=== PATIENT | male | born 1960 | race Caucasian/White ===

== ENCOUNTER 2016-12-26 11:04 | Inpatient (IN) | payer OTHER ==
[2016-12-26 12:42] VITALS: BMI 24.4
--- NOTE | 2016-12-26 14:42 | HP ---
CIWA Score - CIWA Score Nausea/Vomitin-No Nausea/No Vomiting Muscle Tremors: 4-Moderate,w/Arms Extend Anxiety: 3 Agitation: 4-Moderately Restless Paroxysmal Sweats: 3 Orientation: 0-Oriented Tacttile Disturbances: 0-None Auditory Disturbances: 0-None Visual Disturbances: 0-None Headache: 2-Mild CIWA-Ar Total Score: 16 Admission ROS BHS - HPI Chief Complaint: I am here to detox for the klonopin. Allergies/Adverse Reactions: Allergies Allergy/AdvReac Type Severity Reaction Status Date / Time No Known Allergies Allergy Verified 12/26/16 14:07 History of Present Illness: pt is a 56yr old male with a history of benzodiazapine (klonopin) dependence seeking detox for treatment. Exam Limitations: No Limitations - Ebola screening Have you traveled outside of the country in the last 21 days: No Have you had contact with anyone from an Ebola affected area: No Have you been sick,other than usual withdrawal symptoms: No Do you have a fever: No - Review of Systems Constitutional: Chills, Changes in sleep EENT: reports: No Symptoms Reported Respiratory: reports: No Symptoms reported Cardiac: reports: No Symptoms Reported GI: reports: No Symptoms Reported : reports: No Symptoms Reported Musculoskeletal: reports: Back Pain, Joint Pain Integumentary: reports: Flushing, Sweating Neuro: reports: Headache, Tingling, Tremors Endocrine: reports: Excessive Sweating, Flushing, Intolerance to Cold, Intolerance to Heat Hematology: reports: No Symptoms Reported Psychiatric: reports: No Sypmtoms Reported, Judgement Intact, Mood/Affect Appropiate, Orientated x3, Agitated, Anxious Other Systems: Reviewed and Negative Patient History - Patient Medical History Hx Anemia: No Hx Asthma: No Hx Chronic Obstructive Pulmonary Disease (COPD): No Hx Cancer: No Hx Cardiac Disorders: No Hx Congestive Heart Failure: No Hx Hypertension: No Hx Hypercholesterolemia: No Hx Pacemaker: No HX Cerebrovascular Accident: No Hx Seizures: No Hx Dementia: No Hx Diabetes: No Hx Gastrointestinal Disorders: No Hx Liver Disease: No Hx Genitourinary Disorders: No Hx Sexually Transmitted Disorders: No Hx Renal Disease (ESRD): No Hx Thyroid Disease: No Hx Human Immunodeficiency Virus (HIV): No (denies) Hx Hepatitis C: No (denies) Hx Depression: Yes Hx Suicide Attempt: No Hx Schizophrenia: No Other Medical History: insomnia/anxiety - Patient Surgical History Past Surgical History: No Hx Neurologic Surgery: No Hx Cataract Extraction: No Hx Cardiac Surgery: No Hx Lung Surgery: No Hx Breast Surgery: No Hx Breast Biopsy: No Hx Abdominal Surgery: No Hx Appendectomy: No Hx Cholecystectomy: No Hx Genitourinary Surgery: No Hx Section: No Hx Orthopedic Surgery: No Anesthesia Reaction: No - PPD History Previous Implant?: Yes Documented Results: Negative w/o proof Implanted On Prior R Admission?: No PPD to be Administered?: Yes - Reproductive History Patient is a Female of Child Bearing Age (11 -55 yrs old): No - Smoking Cessation Smoking history: Never smoked Have you smoked in the past 12 months: No Hx Chewing Tobacco Use: No Initiated information on smoking cessation: No - Substance & Tx. History Hx Alcohol Use: Yes Hx Substance Use: Yes Substance Use Type: Alcohol, Tranquilizers Hx Substance Use Treatment: Yes - Substances Abused Klonopin Route: Oral Frequency: Daily Amount used: 4 mg. Age of first use: 56 Date of Last Use: 12/25/16 Alcohol-beer Route: Oral Frequency: 3-6 times per week Amount used: 3-4 (12 oz.) Age of first use: 23 Date of Last Use: 12/24/16 Family Disease History - Family Disease History Family History: Denies Admission Physical Exam S - Vital Signs Vital Signs: Vital Signs - 24 hr 12/26/16 12:39 Temperature 97.0 F L Pulse Rate 83 Respiratory 18 Rate Blood Pressure 141/99 - Physical General Appearance: Yes: Appropriately Dressed, Moderate Distress, Thin, Tremorous, Irritable, Sweating, Anxious HEENTM: Yes: Hearing grossly Normal Respiratory: Yes: Lungs Clear, Normal Breath Sounds, No Respiratory Distress Neck: Yes: Within Normal Limits Breast: Yes: Within Normal Limits Cardiology: Yes: Regular Rhythm, Regular Rate, S1, S2 Abdominal: Yes: Normal Bowel Sounds, Non Tender, Soft Genitourinary: Yes: Within Normal Limits Back: Yes: Normal Inspection Musculoskeletal: Yes: full range of Motion Extremities: Yes: Normal Capillary Refill, Normal Inspection, Tremors Neurological: Yes: Fully Oriented, Alert, Normal Response Integumentary: Yes: Normal Color, Diaphoresis Lymphatic: Yes: Within Normal Limits - Diagnostic (1) Sedative, hypnotic or anxiolytic dependence with withdrawal, uncomplicated Current Visit: Yes Status: Chronic (2) Alcohol dependence with uncomplicated withdrawal Current Visit: Yes Status: Chronic (3) Insomnia Current Visit: Yes Status: Chronic Qualifiers: Insomnia type: unspecified Qualified Code(s): G47.00 - Insomnia, unspecified Cleared for Admission BH - Detox or Rehab [facility] Level of Care: Medically Managed Detox Regimen/Protocol: Valium S Breath Alcohol Content Breath Alcohol Content: 0 Urine Drug Screen - Results Drug Screen Negative: No Urine Drug Screen Results: BZO-Benzodiazepines, TCA-Tricyclic Antidepress
[2016-12-26] MEDS ORDERED: ACETAMINOPHEN 325 MG TABLET (FP) PO PRN (14:57)
[2016-12-26] MEDS ORDERED: MAGNESIUM CITRATE 300 ML BOTTLE PO PRN (14:57)
[2016-12-26] MEDS ORDERED: MENTHOL/PHENOL 1 EACH UD MM PRN (14:57)
[2016-12-26] MEDS ORDERED: P-EPHED 60MG/TRIPROLIDI 2.5MG TABLET PO PRN (14:57)
[2016-12-26] MEDS ORDERED: diphenhydrAMINE HCL 50 MG CAPSULE PO PRN (14:57)
[2016-12-26] MEDS ORDERED: MAGNESIUM HYDROX 2400MG/30ML ORAL SUSPENSION 30 ML CUP PO PRN (14:57)
[2016-12-26] MEDS ORDERED: guaiFENesin/D-METHORPHAN HB 10 ML UNIT-DOSE CUPS PO PRN (14:57)
[2016-12-26] MEDS ORDERED: LOPERAMIDE HCL 2 MG CAPSULE PO PRN (14:57)
[2016-12-26] MEDS ORDERED: MAG HYDROX/AL HYDROX/SIMETH 30 ML UNIT-DOSE CUP PO PRN (14:57)
[2016-12-26] MEDS ORDERED: diazePAM 5 MG TABLET PO ONE (15:30)
[2016-12-26] MEDS: IBUPROFEN 400 MG TABLET (FP) PO PRN (16:35)
--- NOTE | 2016-12-26 17:05 | CONSULT ---
[facility] Psychiatric Consult - Data Date of interview: 12/26/16 Admission source: [facility] Identifying data: First admission to [facility] for this 56 y/o male seeking detox treatment for alcohol and benzodiazepine dependence.Patient is ( of lung cancer in 2013) without children,domiciled, unemployed and supported on Public Assistance. Substance Abuse History: - Smoking Cessation. Smoking history: Never smoked. Have you smoked in the past 12 months: No. Hx Chewing Tobacco Use: No. Initiated information on smoking cessation: No. - Substance & Tx. History. Hx Alcohol Use: Yes. Hx Substance Use: Yes. Substance Use Type: Alcohol, Tranquilizers. Hx Substance Use Treatment: Yes. - Substances Abused. Klonopin. Route: Oral. Frequency: Daily. Amount used: 4 mg. Age of first use : 56. Date of Last Use: 12/25/16. Alcohol-beer. Route: Oral. Frequency: 3 -6 times per week. Amount used: 3-4 (12 oz.). Age of first use: 23. Date of Last Use: 12/24/16. Confirmed by patient. Medical History: Patient endorses good general health. Psychiatric History: Onset of emotional disturbances : age 21. Diagnosed with Anxiety Disorder.History of multiple psychiatric hospitalizations ([facility]).Mr Erickson gets his outpatient psychiatric services at the [facility] health clinic in [place], [place].He reports maintenance on seroquel 800 mg/hs and klonopin.Last taken on 12/25/16 as per self-report.No history of suicide attempts. Physical/Sexual Abuse/Trauma History: Patient denies hoistory of abuse. Additional Comment: Urine Drug Screen Results: BZO-Benzodiazepines, TCA- Tricyclic Antidepressant.Noted. Mental Status Exam - Mental Status Exam Alert and Oriented to: Place, Person Cognitive Function: Good Patient Appearance: Well Groomed Mood: Sad, Withdrawn, Anxious, Apprehensive Affect: Mood Congruent, Constricted Patient Behavior: Fatigued, Appropriate, Cooperative Speech Pattern: Clear (croatian-speaking) Voice Loudness: Normal Thought Process: Goal Oriented Thought Disorder: Not Present Hallucinations: Denies Suicidal Ideation: Denies Homicidal Ideation: Denies Insight/Judgement: Poor Sleep: Poorly, Difficulty falling asleep Appetite: Good Muscle strength/Tone: Normal Gait/Station: Normal Psychiatric Findings - Problem List ([place] 1, 2,3) (1) Alcohol dependence with uncomplicated withdrawal Current Visit: Yes Status: Acute (2) Sedative, hypnotic or anxiolytic dependence with withdrawal, uncomplicated Current Visit: Yes Status: Acute (3) Substance induced mood disorder Current Visit: Yes Status: Acute (4) Mood disorder Current Visit: Yes Status: Chronic (5) Insomnia Current Visit: Yes Status: Chronic Qualifiers: Insomnia type: unspecified Qualified Code(s): G47.00 - Insomnia, unspecified - Initial Treatment Plan Initial Treatment Plan: Psychoeducation.Detoxification in progress.Medication : seroquel 200 mg po bid (intentionally reduced in view of potential for oversedation).Side effects/benefits discussed with the patient.Titration will follow if good tolerability/clinical necessity.Patient is in agreement with this plan of care.Dose was verified (with patient's verbal authorization) via contact with [facility] @ [phone] : most recent filled script for seroquel 400 mg bid was picked up on 12/18/16 at [address] [facility] [address].Observation.NO scripts needed at discharge.
[2016-12-26 18:03] LABS: URINE APPEARANCE CLEAR; URINE BILIRUBIN NEGATIVE (NEGATIVE); URINE BLOOD NEGATIVE (NEGATIVE); URINE COLOR STRAW; URINE GLUCOSE (UA) NEGATIVE (NEGATIVE); URINE KETONE NEGATIVE (NEGATIVE); URINE LEUK ESTERASE NEGATIVE (NEGATIVE); URINE NITRITE NEGATIVE (NEGATIVE); URINE PROTEIN NEGATIVE (NEGATIVE); URINE UROBILINOGEN NEGATIVE E.U./dl (0.2-1.0)
[2016-12-26] MEDS: diazePAM 5 MG TABLET PO SCH (22:52)
[2016-12-26] MEDS: QUEtiapine FUMARATE 200 MG TABLET PO SCH (22:52)
[2016-12-26] MEDS: THIAMINE HCL 100 MG TABLET (FP) PO SCH (22:52)
[2016-12-27] MEDS: diazePAM 5 MG TABLET PO SCH ×3 (05:33→22:26)
[2016-12-27] MEDS: diazePAM 5 MG TABLET PO PRN ×3 (06:37→17:07)
[2016-12-27 09:58] LABS: MCH 29.3 pg (25.7-33.7); MCHC 33.3 g/dl (32.0-35.9); MEAN CELL VOLUME 88.1 fl (80-96); MEAN PLT VOLUME 8.8 fl (7.5-11.1); PLATELET COUNT 231 K/MM3 (134-434); RDW 13.6 % (11.9-15.9); WHITE BLOOD COUNT 4.9 K/mm3 (4.0-10.0)
[2016-12-27] MEDS: QUEtiapine FUMARATE 200 MG TABLET PO SCH ×2 (10:29→22:27)
[2016-12-27] MEDS: PRENATAL VITAMINS W/ FOLIC ACID TABLET (FP) PO SCH (10:29)
[2016-12-27 10:32] LABS: ALBUMIN 4.5 g/dl (3.4-5.0); ALK PHOS 120 U/L (45-117); ANION GAP 6 (8-16); BILIRUBIN,TOTAL 0.5 mg/dL (0.2-1.0); CALCIUM 9.4 mg/dL (8.5-10.1); CO2 32 mmol/L (21-32); COCKROFT - GAULT 85.56; CREATININE 1.1 mg/dL (0.7-1.3); GLUCOSE,RANDOM 86 mg/dL (74-106); SGOT/AST 46 U/L (15-37); SGPT/ALT 35 U/L (12-78); TOT PROT 7.5 g/dl (6.4-8.2)
[2016-12-27] MEDS ORDERED: cloNIDine HCL 0.1 MG TABLET PO ONE (12:01)
--- NOTE | 2016-12-27 12:01 | PN ---
S CIWA - CIWA Score Nausea/Vomitin Muscle Tremors: 3 Anxiety: 4-Mod. Anxious/Guarded Agitation: 2 Paroxysmal Sweats: 2 Orientation: 0-Oriented Tacttile Disturbances: 1-Very Mild Itch/Numbness Auditory Disturbances: 0-None Visual Disturbances: 3-Moderate Sensitivity Headache: 2-Mild CIWA-Ar Total Score: 19 BHS Progress Note (SOAP) Subjective: Interrupted Sleep, Tremors, Stomach Cramping, Anxious, H/A, Diarrhea. Objective: PT. A & O X 3, OBSERVED AMBULATING ON UNIT. PT. DENIES HISTORY OF HTN. PT. DENIES CHEST PAIN. 12/27/16 11:59 Vital Signs Temperature 96.0 F L 12/27/16 09:10 Pulse Rate 96 H 12/27/16 09:10 Respiratory Rate 18 12/27/16 09:10 Blood Pressure 147/102 12/27/16 09:10 O2 Sat by Pulse Oximetry (%) Laboratory Tests 12/26/16 12/27/16 12/27/16 17:01 06:00 06:00 WBC 4.9 RBC 5.57 Hgb 16.3 Hct 49.1 H MCV 88.1 MCHC 33.3 RDW 13.6 Plt Count 231 MPV 8.8 Sodium 142 Potassium 4.3 Chloride 104 Carbon Dioxide 32 Anion Gap 6 L BUN 11 Creatinine 1.1 Creat Clearance w eGFR > 60 Random Glucose 86 Calcium 9.4 Total Bilirubin 0.5 AST 46 H ALT 35 Alkaline Phosphatase 120 H Total Protein 7.5 Albumin 4.5 Urine Color Straw Urine Appearance Clear Urine pH 7.0 Ur Specific [place] 1.010 Urine Protein Negative Urine Glucose (UA) Negative Urine Ketones Negative Urine Blood Negative Urine Nitrite Negative Urine Bilirubin Negative Urine Urobilinogen Negative Ur Leukocyte Esterase Negative LABS NOTED. 12/27/16 12:01 Assessment: 12/27/16 12:01 WITHDRAWAL SYMPTOMS. Plan: CONTINUE DETOX. CONTINUE TO MONITOR BP. CLONIDINE, 0.1 MG PO X 1 FOR ELEVATED BP AND FOR WITHDRAWAL SYMPTOMS. ADVISED PT. TO FOLLOW-UP WITH [facility] OR CALENDAR CLERK AFTER DISCHARGE FROM DETOX FOR GENERAL MEDICAL ASSESSMENT AND FOR ABNORMAL ADMISSION LIVER ENZYME VALUES.
--- NOTE | 2016-12-27 13:13 | EKG ---
Test Reason : Blood Pressure : / mmHG Vent. Rate : 070 BPM Atrial Rate : 070 BPM P-R Int : 148 ms QRS Dur : 092 ms QT Int : 408 ms P-R-T Axes : 058 046 053 degrees QTc Int : 440 ms NORMAL SINUS RHYTHM NORMAL ECG NO PREVIOUS ECGS AVAILABLE Confirmed by ZOLTAN MELVIN MD ([id number]) on 12/27/2016 1:12:58 PM Referred By: Confirmed By:ZOLTAN MELVIN MD
[2016-12-27] MEDS: THIAMINE HCL 100 MG TABLET (FP) PO SCH (22:26)
[2016-12-28] MEDS: diazePAM 5 MG TABLET PO PRN ×4 (05:03→18:45)
[2016-12-28] MEDS: hydrOXYzine PAMOATE 50 MG CAPSULE (FP) PO PRN (07:27)
[2016-12-28] MEDS: IBUPROFEN 400 MG TABLET (FP) PO PRN (07:27)
[2016-12-28] MEDS: QUEtiapine FUMARATE 200 MG TABLET PO SCH ×2 (09:07→22:21)
[2016-12-28] MEDS: PRENATAL VITAMINS W/ FOLIC ACID TABLET (FP) PO SCH (09:07)
--- NOTE | 2016-12-28 10:11 | PN ---
S CIWA - CIWA Score Nausea/Vomitin-No Nausea/No Vomiting Muscle Tremors: 4-Moderate,w/Arms Extend Anxiety: 3 Agitation: 3 Paroxysmal Sweats: 3 Orientation: 0-Oriented Tacttile Disturbances: 0-None Auditory Disturbances: 0-None Visual Disturbances: 0-None Headache: 0-None Present CIWA-Ar Total Score: 13 BHS Progress Note (SOAP) Subjective: Anxiety,sweating,interrupted sleep,restless Objective: 12/28/16 10:10 Vital Signs - 8 hr 12/28/16 12/28/16 12/28/16 03:30 06:15 07:28 Temperature 97.8 F Pulse Rate 88 86 Respiratory 18 18 Rate Blood Pressure 168/108 134/100 12/28/16 09:20 Temperature 97.5 F L Pulse Rate 103 H Respiratory 20 Rate Blood Pressure 153/103 Laboratory Tests 12/26/16 12/27/16 12/27/16 17:01 06:00 06:00 WBC 4.9 RBC 5.57 Hgb 16.3 Hct 49.1 H MCV 88.1 MCHC 33.3 RDW 13.6 Plt Count 231 MPV 8.8 Sodium 142 Potassium 4.3 Chloride 104 Carbon Dioxide 32 Anion Gap 6 L BUN 11 Creatinine 1.1 Creat Clearance w eGFR > 60 Random Glucose 86 Calcium 9.4 Total Bilirubin 0.5 AST 46 H ALT 35 Alkaline Phosphatase 120 H Total Protein 7.5 Albumin 4.5 Urine Color Straw Urine Appearance Clear Urine pH 7.0 Ur Specific [place] 1.010 Urine Protein Negative Urine Glucose (UA) Negative Urine Ketones Negative Urine Blood Negative Urine Nitrite Negative Urine Bilirubin Negative Urine Urobilinogen Negative Ur Leukocyte Esterase Negative RPR Titer 12/27/16 06:00 WBC RBC Hgb Hct MCV MCHC RDW Plt Count MPV Sodium Potassium Chloride Carbon Dioxide Anion Gap BUN Creatinine Creat Clearance w eGFR Random Glucose Calcium Total Bilirubin AST ALT Alkaline Phosphatase Total Protein Albumin Urine Color Urine Appearance Urine pH Ur Specific [place] Urine Protein Urine Glucose (UA) Urine Ketones Urine Blood Urine Nitrite Urine Bilirubin Urine Urobilinogen Ur Leukocyte Esterase RPR Titer Nonreactive labs noted Assessment: 12/28/16 10:11 Withdrawal sx. Plan: Continue detox
[2016-12-28] MEDS: amLODIPine BESYLATE 5 MG TABLET (FP) PO SCH ×2 (10:29→22:21)
[2016-12-28] MEDS: diazePAM 5 MG TABLET PO SCH ×2 (10:57→22:21)
[2016-12-28] MEDS: THIAMINE HCL 100 MG TABLET (FP) PO SCH (22:21)
[2016-12-29] MEDS: diazePAM 5 MG TABLET PO PRN ×3 (04:31→13:45)
[2016-12-29] MEDS: diazePAM 5 MG TABLET PO SCH ×2 (10:23→22:19)
[2016-12-29] MEDS: QUEtiapine FUMARATE 200 MG TABLET PO SCH ×2 (10:23→22:19)
[2016-12-29] MEDS: PRENATAL VITAMINS W/ FOLIC ACID TABLET (FP) PO SCH (10:23)
[2016-12-29] MEDS: amLODIPine BESYLATE 5 MG TABLET (FP) PO SCH ×2 (10:23→22:19)
--- NOTE | 2016-12-29 11:44 | PN ---
S CIWA - CIWA Score Nausea/Vomitin Muscle Tremors: 2 Anxiety: 2 Agitation: 2 Paroxysmal Sweats: 2 Orientation: 0-Oriented Tacttile Disturbances: 1-Very Mild Itch/Numbness Auditory Disturbances: 0-None Visual Disturbances: 0-None Headache: 3-Moderate CIWA-Ar Total Score: 14 S Progress Note (SOAP) Subjective: sweats, headache, right rib pain,anxiety Objective: 12/29/16 11:43 Vital Signs - 8 hr 12/29/16 12/29/16 06:22 10:20 Temperature 96.9 F L 98.1 F Pulse Rate 91 H 93 H Respiratory 18 20 Rate Blood Pressure 150/93 140/97 Laboratory Last Values WBC 4.9 K/mm3 (4.0-10.0) 12/27/16 06:00 RBC 5.57 M/mm3 (4.00-5.60) 12/27/16 06:00 Hgb 16.3 GM/dL (11.7-16.9) 12/27/16 06:00 Hct 49.1 % (35.4-49) H 12/27/16 06:00 MCV 88.1 fl (80-96) 12/27/16 06:00 MCHC 33.3 g/dl (32.0-35.9) 12/27/16 06:00 RDW 13.6 % (11.9-15.9) 12/27/16 06:00 Plt Count 231 K/MM3 (134-434) 12/27/16 06:00 MPV 8.8 fl (7.5-11.1) 12/27/16 06:00 Sodium 142 mmol/L (136-145) 12/27/16 06:00 Potassium 4.3 mmol/L (3.5-5.1) 12/27/16 06:00 Chloride 104 mmol/L (98-107) 12/27/16 06:00 Carbon Dioxide 32 mmol/L (21-32) 12/27/16 06:00 Anion Gap 6 (8-16) L 12/27/16 06:00 BUN 11 mg/dL (7-18) 12/27/16 06:00 Creatinine 1.1 mg/dL (0.7-1.3) 12/27/16 06:00 Creat Clearance w eGFR > 60 (>60) 12/27/16 06:00 Random Glucose 86 mg/dL (74-106) 12/27/16 06:00 Calcium 9.4 mg/dL (8.5-10.1) 12/27/16 06:00 Total Bilirubin 0.5 mg/dL (0.2-1.0) 12/27/16 06:00 AST 46 U/L (15-37) H 12/27/16 06:00 ALT 35 U/L (12-78) 12/27/16 06:00 Alkaline Phosphatase 120 U/L (45-117) H 12/27/16 06:00 Total Protein 7.5 g/dl (6.4-8.2) 12/27/16 06:00 Albumin 4.5 g/dl (3.4-5.0) 12/27/16 06:00 Urine Color Straw 12/26/16 17:01 Urine Appearance Clear 12/26/16 17:01 Urine pH 7.0 (5.0-8.0) 12/26/16 17:01 Ur Specific [place] 1.010 (1.005-1.025) 12/26/16 17:01 Urine Protein Negative (NEGATIVE) 12/26/16 17:01 Urine Glucose (UA) Negative (NEGATIVE) 12/26/16 17:01 Urine Ketones Negative (NEGATIVE) 12/26/16 17:01 Urine Blood Negative (NEGATIVE) 12/26/16 17:01 Urine Nitrite Negative (NEGATIVE) 12/26/16 17:01 Urine Bilirubin Negative (NEGATIVE) 12/26/16 17:01 Urine Urobilinogen Negative E.U./dl (0.2-1.0) 12/26/16 17:01 Ur Leukocyte Esterase Negative (NEGATIVE) 12/26/16 17:01 RPR Titer Nonreactive (NONREACTIVE) 12/27/16 06:00 labs noted Assessment: 12/29/16 11:43 withdrawal sx Plan: continue detox
[2016-12-29] MEDS: hydrOXYzine PAMOATE 50 MG CAPSULE (FP) PO PRN ×2 (17:28→22:18)
[2016-12-29] MEDS: THIAMINE HCL 100 MG TABLET (FP) PO SCH (22:18)
[2016-12-30] MEDS: IBUPROFEN 400 MG TABLET (FP) PO PRN (05:32)
[2016-12-30] MEDS ORDERED: diazePAM 5 MG TABLET PO SCH (10:00)
[2016-12-30 10:19] VITALS: BP 134/93; PULSE 95; TEMP 98.3
[2016-12-30] MEDS: QUEtiapine FUMARATE 200 MG TABLET PO SCH (10:25)
[2016-12-30] MEDS: PRENATAL VITAMINS W/ FOLIC ACID TABLET (FP) PO SCH (10:25)
[2016-12-30] MEDS: amLODIPine BESYLATE 5 MG TABLET (FP) PO SCH (10:25)
--- NOTE | 2016-12-30 13:22 | DS ---
[facility] Detox Discharge Summary Admission Date: 12/26/16 Discharge Date: 12/30/16 - History Present History: Alcohol Dependence, Sedative Dependence Pertinent Past History: HTN - Physical Exam Results Vital Signs: Vital Signs Temperature 98.3 F 12/30/16 10:19 Pulse Rate 95 H 12/30/16 10:19 Respiratory Rate 20 12/30/16 10:19 Blood Pressure 134/93 12/30/16 10:19 O2 Sat by Pulse Oximetry (%) Pertinent Admission Physical Exam Findings: Withdrawal symptoms Laboratory Tests 12/26/16 12/27/16 12/27/16 17:01 06:00 06:00 WBC 4.9 RBC 5.57 Hgb 16.3 Hct 49.1 H MCV 88.1 MCHC 33.3 RDW 13.6 Plt Count 231 MPV 8.8 Sodium 142 Potassium 4.3 Chloride 104 Carbon Dioxide 32 Anion Gap 6 L BUN 11 Creatinine 1.1 Creat Clearance w eGFR > 60 Random Glucose 86 Calcium 9.4 Total Bilirubin 0.5 AST 46 H ALT 35 Alkaline Phosphatase 120 H Total Protein 7.5 Albumin 4.5 Urine Color Straw Urine Appearance Clear Urine pH 7.0 Ur Specific [place] 1.010 Urine Protein Negative Urine Glucose (UA) Negative Urine Ketones Negative Urine Blood Negative Urine Nitrite Negative Urine Bilirubin Negative Urine Urobilinogen Negative Ur Leukocyte Esterase Negative RPR Titer 12/27/16 06:00 WBC RBC Hgb Hct MCV MCHC RDW Plt Count MPV Sodium Potassium Chloride Carbon Dioxide Anion Gap BUN Creatinine Creat Clearance w eGFR Random Glucose Calcium Total Bilirubin AST ALT Alkaline Phosphatase Total Protein Albumin Urine Color Urine Appearance Urine pH Ur Specific [place] Urine Protein Urine Glucose (UA) Urine Ketones Urine Blood Urine Nitrite Urine Bilirubin Urine Urobilinogen Ur Leukocyte Esterase RPR Titer Nonreactive Labs noted - Treatment Hospital Course: Detox Protocol Followed, Detoxed Safely, Responded well, Discharged Condition Good, Rehab Referral Accepted - Medication Discharge Medications: Ambulatory Orders Clonazepam [Klonopin -] 2 mg PO BID PRN 12/26/16 Quetiapine Fumarate [Seroquel -] 400 mg PO BID 12/26/16 - Diagnosis (1) Alcohol dependence with uncomplicated withdrawal Current Visit: Yes Status: Acute (2) Sedative, hypnotic or anxiolytic dependence with withdrawal, uncomplicated Current Visit: Yes Status: Acute (3) Mood disorder Current Visit: Yes Status: Chronic (4) HTN (hypertension), benign Current Visit: Yes Status: Acute - AMA Did Patient Leave Against Medical Advice: No
== END 2016-12-30 13:45 | disposition other institution (70) | DRG 775 ==
LOC: YASAS 11:04 → Y3N 15:07
PROVIDERS: ADMIT Internal Medicine; ATTEND Internal Medicine
PROC: HZ2ZZZZ Detoxification Services for Substance Abuse Treatment (ICD-10-PCS; principal; 2016-12-26)
DX: F13.230 Sedative, hypnotic or anxiolytic dependence with withdrawal, uncomplicated (principal); F10.230 Alcohol dependence with withdrawal, uncomplicated; F39 Unspecified mood [affective] disorder; F19.24 Other psychoactive substance dependence with psychoactive substance-induced mood disorder; I10 Essential (primary) hypertension; G47.00 Insomnia, unspecified
CPT/HCPCS: 36415; 80053; 81003; 85027; 86593; 93005; 93010

== ENCOUNTER 2016-12-30 13:45 | Inpatient (IN) | payer OTHER ==
[2016-12-30] MEDS ORDERED: ACETAMINOPHEN 325 MG TABLET (FP) PO PRN (16:28)
[2016-12-30] MEDS ORDERED: LOPERAMIDE HCL 2 MG CAPSULE PO PRN (16:28)
[2016-12-30] MEDS ORDERED: P-EPHED 60MG/TRIPROLIDI 2.5MG TABLET PO PRN (16:28)
[2016-12-30] MEDS ORDERED: MAGNESIUM CITRATE 300 ML BOTTLE PO PRN (16:28)
[2016-12-30] MEDS ORDERED: MAGNESIUM HYDROX 2400MG/30ML ORAL SUSPENSION 30 ML CUP PO PRN (16:28)
[2016-12-30] MEDS ORDERED: MENTHOL/PHENOL 1 EACH UD MM PRN (16:28)
[2016-12-30] MEDS ORDERED: guaiFENesin/D-METHORPHAN HB 10 ML UNIT-DOSE CUPS PO PRN (16:28)
[2016-12-30] MEDS ORDERED: MAG HYDROX/AL HYDROX/SIMETH 30 ML UNIT-DOSE CUP PO PRN (16:28)
[2016-12-30] MEDS ORDERED: diphenhydrAMINE HCL 50 MG CAPSULE PO PRN (16:28)
--- NOTE | 2016-12-30 16:30 | HP ---
[facility] Rehab Assess/Revision - Admission History Admitted to Rehab from: [facility] Date of Admission to Rehab: 12/30/16 - Vital signs Vital Signs: Vital Signs Period Temp Pulse Resp BP Sys/Sanders Pulse Ox Last 24 Hr 97.3 F 102 18 114/82 - Findings Detox History & Physical reviewed: Yes Concur with findings: Yes
[2016-12-30] MEDS: QUEtiapine FUMARATE 100 MG TABLET (FP) PO SCH (21:32)
[2016-12-30] MEDS: THIAMINE HCL 100 MG TABLET (FP) PO SCH (21:32)
[2016-12-31] MEDS: IBUPROFEN 400 MG TABLET (FP) PO PRN (06:57)
[2016-12-31] MEDS: diphenhydrAMINE HCL 25 MG CAPSULE (FP) PO PRN ×2 (07:57→18:03)
[2016-12-31] MEDS: PRENATAL VITAMINS W/ FOLIC ACID TABLET (FP) PO SCH (10:22)
[2016-12-31] MEDS: HYDROCORTISONE 1% TOPICAL CREAM 30 GM TUBE TP SCH ×2 (18:04→23:09)
[2016-12-31] MEDS: THIAMINE HCL 100 MG TABLET (FP) PO SCH (21:45)
[2016-12-31] MEDS: QUEtiapine FUMARATE 100 MG TABLET (FP) PO SCH (21:45)
[2017-01-01] MEDS: diphenhydrAMINE HCL 25 MG CAPSULE (FP) PO PRN (08:28)
[2017-01-01] MEDS: HYDROCORTISONE 1% TOPICAL CREAM 30 GM TUBE TP SCH ×4 (10:20→21:34)
[2017-01-01] MEDS: PRENATAL VITAMINS W/ FOLIC ACID TABLET (FP) PO SCH (10:20)
--- NOTE | 2017-01-01 12:34 | HP ---
Psychiatrist Admission - Data Date of interview: 01/01/17 Admission source: [facility] Identifying data: This is the first [facility] inpatient rehabilitation admission for this 56 year old male who is without children, domiciled,unemployed and supported on Public Assistance. Medical History: Patient reports a good physical health. Psychiatric History: Patient reports first psychiatric contact was at age of 21 to address anxiety, reports he lost his from lung cancer in 2013 and he started taking more klonopin, he reports several psychiatric hospitalizations including [facility], [facility], [facility], he reports he under the care of [facility] in [place] and was on Seroquel 800 mg hs and Klonopin. Seen by while at [facility] and started 400 mg po hs. Past treatment with Buspar, Gabapentin. Physical/Sexual Abuse/Trauma History: Patient denies history of abuse Vital Signs: Vital Signs - 24 hr 01/01/17 01/01/17 01/01/17 00:30 03:30 07:00 Temperature 98.7 F Pulse Rate 98 H Respiratory 16 16 18 Rate Blood Pressure 142/92 Allergies/Adverse Reactions: Allergies Allergy/AdvReac Type Severity Reaction Status Date / Time No Known Allergies Allergy Verified 12/26/16 14:07 Date of last physical exam: 12/26/16 Concur with the findings of this exam: Yes - Substance Abuse/Tx History Hx Alcohol Use: Yes Hx Substance Use: Yes Substance Use Type: Alcohol (beer 12 oz, 3-4 times a week), Tranquilizers (4 mg of klonopin daily) Hx Substance Use Treatment: Yes - Admission Criteria Previous failed treatment: Yes Poor recovery environment: Yes Comorbidities: Yes Lacks judgement: Yes Mental Status Exam - Mental Status Exam Alert and Oriented to: Time, Place, Person Cognitive Function: Grossly Intact Patient Appearance: Well Groomed Mood: Nervous, Anxious Affect: Mood Congruent Patient Behavior: Appropriate, Cooperative Speech Pattern: Clear, Appropriate Voice Loudness: Normal Thought Process: Goal Oriented Thought Disorder: Not Present Hallucinations: Denies Suicidal Ideation: Denies Homicidal Ideation: Denies Insight/Judgement: Fair Sleep: Fair Appetite: Fair Muscle strength/Tone: Normal Gait/Station: Normal Psychiatric Findings - Problem List ([place] 1, 2,3) (1) Mood disorder Current Visit: No Status: Chronic (2) Alcohol dependence Current Visit: Yes Status: Acute (3) Sedative hypnotic or anxiolytic dependence Current Visit: Yes Status: Acute (4) SOFIA (generalized anxiety disorder) Current Visit: Yes Status: Acute - Initial Treatment Plan Initial Treatment Plan: Will increase Seroquel 600 mg po hs, will add Gabapentin 100 mg po tid. Monitor progress as needed.
[2017-01-01] MEDS: GABAPENTIN 100 MG CAPSULE (FP) PO SCH ×2 (14:18→21:34)
[2017-01-01] MEDS: THIAMINE HCL 100 MG TABLET (FP) PO SCH (21:34)
[2017-01-01] MEDS: QUEtiapine FUMARATE 300 MG TABLET PO SCH (21:34)
[2017-01-02] MEDS: GABAPENTIN 100 MG CAPSULE (FP) PO SCH ×3 (06:19→21:31)
[2017-01-02] MEDS: HYDROCORTISONE 1% TOPICAL CREAM 30 GM TUBE TP SCH ×4 (10:11→21:31)
[2017-01-02] MEDS: QUEtiapine FUMARATE 300 MG TABLET PO SCH (21:31)
[2017-01-02] MEDS: THIAMINE HCL 100 MG TABLET (FP) PO SCH (21:32)
[2017-01-03] MEDS: GABAPENTIN 100 MG CAPSULE (FP) PO SCH ×3 (06:30→21:33)
[2017-01-03] MEDS: HYDROCORTISONE 1% TOPICAL CREAM 30 GM TUBE TP SCH ×4 (10:03→21:33)
[2017-01-03] MEDS: THIAMINE HCL 100 MG TABLET (FP) PO SCH (21:33)
[2017-01-03] MEDS: QUEtiapine FUMARATE 300 MG TABLET PO SCH (21:33)
[2017-01-04] MEDS: GABAPENTIN 100 MG CAPSULE (FP) PO SCH ×3 (06:19→21:35)
[2017-01-04] MEDS: HYDROCORTISONE 1% TOPICAL CREAM 30 GM TUBE TP SCH ×4 (10:05→21:36)
[2017-01-04] MEDS: THIAMINE HCL 100 MG TABLET (FP) PO SCH (21:35)
[2017-01-04] MEDS: QUEtiapine FUMARATE 300 MG TABLET PO SCH (21:35)
[2017-01-05] MEDS: GABAPENTIN 100 MG CAPSULE (FP) PO SCH ×3 (06:11→21:37)
[2017-01-05] MEDS ORDERED: COLLOIDAL OATMEAL 1 BAR EACH TP PRN (07:25)
[2017-01-05] MEDS: HYDROCORTISONE 1% TOPICAL CREAM 30 GM TUBE TP SCH ×4 (10:03→21:37)
[2017-01-05] MEDS: THIAMINE HCL 100 MG TABLET (FP) PO SCH (21:37)
[2017-01-05] MEDS: QUEtiapine FUMARATE 300 MG TABLET PO SCH (21:37)
[2017-01-06] MEDS: GABAPENTIN 100 MG CAPSULE (FP) PO SCH ×3 (06:15→21:35)
[2017-01-06] MEDS: HYDROCORTISONE 1% TOPICAL CREAM 30 GM TUBE TP SCH ×4 (10:05→21:36)
[2017-01-06] MEDS: QUEtiapine FUMARATE 300 MG TABLET PO SCH (21:35)
[2017-01-06] MEDS: THIAMINE HCL 100 MG TABLET (FP) PO SCH (21:36)
[2017-01-07] MEDS: GABAPENTIN 100 MG CAPSULE (FP) PO SCH ×3 (06:05→21:32)
[2017-01-07] MEDS: HYDROCORTISONE 1% TOPICAL CREAM 30 GM TUBE TP SCH ×4 (10:15→21:33)
[2017-01-07] MEDS: QUEtiapine FUMARATE 300 MG TABLET PO SCH (21:32)
[2017-01-07] MEDS: THIAMINE HCL 100 MG TABLET (FP) PO SCH (21:33)
[2017-01-08] MEDS: GABAPENTIN 100 MG CAPSULE (FP) PO SCH ×3 (06:06→21:30)
[2017-01-08] MEDS: HYDROCORTISONE 1% TOPICAL CREAM 30 GM TUBE TP SCH ×4 (10:06→21:30)
[2017-01-08] MEDS: THIAMINE HCL 100 MG TABLET (FP) PO SCH (21:30)
[2017-01-08] MEDS: QUEtiapine FUMARATE 300 MG TABLET PO SCH (21:30)
[2017-01-09] MEDS: GABAPENTIN 100 MG CAPSULE (FP) PO SCH ×3 (06:03→21:33)
[2017-01-09] MEDS: HYDROCORTISONE 1% TOPICAL CREAM 30 GM TUBE TP SCH ×4 (10:32→21:34)
[2017-01-09] MEDS: THIAMINE HCL 100 MG TABLET (FP) PO SCH (21:33)
[2017-01-09] MEDS: QUEtiapine FUMARATE 300 MG TABLET PO SCH (21:33)
[2017-01-10] MEDS: GABAPENTIN 100 MG CAPSULE (FP) PO SCH ×3 (06:09→21:33)
[2017-01-10] MEDS: HYDROCORTISONE 1% TOPICAL CREAM 30 GM TUBE TP SCH ×4 (10:33→21:33)
[2017-01-10] MEDS: QUEtiapine FUMARATE 300 MG TABLET PO SCH (21:33)
[2017-01-10] MEDS: THIAMINE HCL 100 MG TABLET (FP) PO SCH (21:34)
[2017-01-11] MEDS: GABAPENTIN 100 MG CAPSULE (FP) PO SCH ×2 (05:48→14:46)
[2017-01-11] MEDS: HYDROCORTISONE 1% TOPICAL CREAM 30 GM TUBE TP SCH ×4 (10:18→21:37)
--- NOTE | 2017-01-11 14:40 | PN ---
Psychiatric Progress Note Vital Signs: Vital Signs Period Temp Pulse Resp BP Sys/Sanders Pulse Ox Last 24 Hr 98.3 F 109 18-20 149/96 Date of Session: 01/11/17 Chief Complaint:: "side-effects" HPI: Patient is addressing alcohol, benzo depenence comorbid SOFIA and Mood disorder. ROS: WNL Current Medications: Active Medications Generic Name Dose Route Start Last Admin Trade Name Freq PRN Reason Stop Dose Admin Acetaminophen 650 mg 12/30/16 16:28 Tylenol - PO Q4H PRN FEVER OR PAIN Al Hydroxide/Mg Hydroxide 30 ml 12/30/16 16:28 Mylanta Oral Suspension - PO Q6H PRN DYSPEPSIA Colloidal Oatmeal 1 applic 01/05/17 07:25 01/05/17 07:49 Aveeno Soap - TP 1 bar DAILY PRN Administration HYGEINE Diphenhydramine HCl 50 mg 12/30/16 16:28 Benadryl - PO HSMR1 PRN FOR ITCHING Diphenhydramine HCl 50 mg 12/31/16 07:45 01/01/17 08:28 Benadryl - PO 50 mg Q6H PRN Administration FOR ITCHING Eucalyptus/Menthol/Phenol/Sorbitol 1 each 12/30/16 16:28 Cepastat Lozenge - MM Q4H PRN SORE THROAT Guaifenesin 10 ml 12/30/16 16:28 Robitussin Dm - PO Q6H PRN COUGH Hydrocortisone 1 applic 12/31/16 18:00 01/11/17 10:18 Hytone 1% Cream - TP Not Given QID SHERWIN Ibuprofen 400 mg 12/30/16 16:28 12/31/16 06:57 Motrin - PO 400 mg Q6H PRN Administration PAIN Loperamide HCl 4 mg 12/30/16 16:28 Imodium - PO Q6H PRN DIARRHEA Magnesium Hydroxide 30 ml 12/30/16 16:28 01/08/17 10:42 Milk Of Magnesia - PO 30 ml DAILY PRN Administration CONSTIPATION Pseudoephedrine/Triprolidine 1 combo 12/30/16 16:28 Actifed - PO TID PRN NASAL CONGESTION Quetiapine Fumarate 600 mg 01/01/17 22:00 01/10/17 21:33 Seroquel - PO 600 mg HS SHERWIN Administration Thiamine HCl 100 mg 12/30/16 22:00 01/10/17 21:34 Vitamin B1 - PO Not Given HS SHERWIN Current Side Effect: Yes (sexual from Gabapentin.) Lab tests ordered: No Lab tests reviewed: Yes Provider note:: Patient repoerts that he wants to stop gabapentin due to side- effects on his sexual functions, reports it helped with his anxiety and he feels a lot of better, now he wants to staop medication. He focused on his aftercare as well. Reviewed medications with the patient, will d/c Gabapentin, continue Seroquel, monitor progress as needed. Total face to face time:: 35 Mental Status Exam - Mental Status Exam Alert and Oriented to: Time, Place, Person Cognitive Function: Good Patient Appearance: Well Groomed Mood: Hopeful Affect: Appropriate, Mood Congruent Patient Behavior: Appropriate, Cooperative Speech Pattern: Clear, Appropriate Voice Loudness: Normal Thought Process: Intact, Goal Oriented Thought Disorder: Not Present Hallucinations: Denies Suicidal Ideation: Denies Homicidal Ideation: Denies Insight/Judgement: Fair Sleep: Fair Appetite: Fair Muscle strength/Tone: Normal Gait/Station: Normal Psychiatric Treatment Plan - Problem List (1) Mood disorder Current Visit: No (2) Alcohol dependence Current Visit: Yes (3) Sedative hypnotic or anxiolytic dependence Current Visit: Yes (4) SOFIA (generalized anxiety disorder) Current Visit: Yes
[2017-01-11] MEDS: THIAMINE HCL 100 MG TABLET (FP) PO SCH (21:37)
[2017-01-11] MEDS: QUEtiapine FUMARATE 300 MG TABLET PO SCH (21:37)
[2017-01-12] MEDS: HYDROCORTISONE 1% TOPICAL CREAM 30 GM TUBE TP SCH ×4 (10:07→21:28)
[2017-01-12] MEDS: hydrOXYzine PAMOATE 50 MG CAPSULE (FP) PO PRN (15:40)
[2017-01-12] MEDS: THIAMINE HCL 100 MG TABLET (FP) PO SCH (21:28)
[2017-01-12] MEDS: QUEtiapine FUMARATE 300 MG TABLET PO SCH (21:29)
[2017-01-13] MEDS: IBUPROFEN 400 MG TABLET (FP) PO PRN (06:28)
[2017-01-13] MEDS: hydrOXYzine PAMOATE 50 MG CAPSULE (FP) PO PRN ×2 (10:11→14:09)
[2017-01-13] MEDS: HYDROCORTISONE 1% TOPICAL CREAM 30 GM TUBE TP SCH ×4 (10:44→21:21)
[2017-01-13] MEDS: QUEtiapine FUMARATE 300 MG TABLET PO SCH (21:21)
[2017-01-13] MEDS: THIAMINE HCL 100 MG TABLET (FP) PO SCH (21:21)
[2017-01-14] MEDS: hydrOXYzine PAMOATE 50 MG CAPSULE (FP) PO PRN ×3 (06:43→21:37)
[2017-01-14] MEDS: HYDROCORTISONE 1% TOPICAL CREAM 30 GM TUBE TP SCH ×4 (10:14→23:26)
[2017-01-14] MEDS: QUEtiapine FUMARATE 300 MG TABLET PO SCH (21:37)
[2017-01-14] MEDS: THIAMINE HCL 100 MG TABLET (FP) PO SCH (21:38)
[2017-01-15] MEDS: hydrOXYzine PAMOATE 50 MG CAPSULE (FP) PO PRN (05:47)
[2017-01-15 06:37] VITALS: BP 147/90; PULSE 97; TEMP 98
[2017-01-15] MEDS: HYDROCORTISONE 1% TOPICAL CREAM 30 GM TUBE TP SCH (09:26)
--- NOTE | 2017-01-15 10:28 | PN ---
Psychiatric Progress Note Vital Signs: Vital Signs Period Temp Pulse Resp BP Sys/Sanders Pulse Ox Last 24 Hr 98.0 F 97 16-18 147/90 Date of Session: 01/15/17 Chief Complaint:: discharge visit HPI: Patient is addressing alcohol, benzo depenence comorbid SOFIA and Mood disorder. ROS: WNL Current Medications: Active Medications Generic Name Dose Route Start Last Admin Trade Name Freq PRN Reason Stop Dose Admin Acetaminophen 650 mg 12/30/16 16:28 Tylenol - PO Q4H PRN FEVER OR PAIN Al Hydroxide/Mg Hydroxide 30 ml 12/30/16 16:28 Mylanta Oral Suspension - PO Q6H PRN DYSPEPSIA Colloidal Oatmeal 1 applic 01/05/17 07:25 01/05/17 07:49 Aveeno Soap - TP 1 bar DAILY PRN Administration HYGEINE Diphenhydramine HCl 50 mg 12/30/16 16:28 Benadryl - PO HSMR1 PRN FOR ITCHING Diphenhydramine HCl 50 mg 12/31/16 07:45 01/01/17 08:28 Benadryl - PO 50 mg Q6H PRN Administration FOR ITCHING Eucalyptus/Menthol/Phenol/Sorbitol 1 each 12/30/16 16:28 Cepastat Lozenge - MM Q4H PRN SORE THROAT Guaifenesin 10 ml 12/30/16 16:28 Robitussin Dm - PO Q6H PRN COUGH Hydrocortisone 1 applic 12/31/16 18:00 01/15/17 09:26 Hytone 1% Cream - TP Not Given QID SHERWIN Hydroxyzine Pamoate 50 mg 01/12/17 15:29 01/15/17 05:47 Vistaril - PO 50 mg Q4H PRN Administration ANXIETY Ibuprofen 400 mg 12/30/16 16:28 01/13/17 06:28 Motrin - PO 400 mg Q6H PRN Administration PAIN Loperamide HCl 4 mg 12/30/16 16:28 Imodium - PO Q6H PRN DIARRHEA Magnesium Hydroxide 30 ml 12/30/16 16:28 01/08/17 10:42 Milk Of Magnesia - PO 30 ml DAILY PRN Administration CONSTIPATION Pseudoephedrine/Triprolidine 1 combo 12/30/16 16:28 Actifed - PO TID PRN NASAL CONGESTION Quetiapine Fumarate 600 mg 01/01/17 22:00 01/14/17 21:37 Seroquel - PO 600 mg HS SHERWIN Administration Thiamine HCl 100 mg 12/30/16 22:00 01/14/17 21:38 Vitamin B1 - PO Not Given HS SHERWIN Current Side Effect: No Lab tests ordered: No Lab tests reviewed: Yes Provider note:: Patient has completed today his treatment and met his goals, will contiue to address his issues at [facility] outpatient treatment program. Patient gained insights on his addiction and motivated to stay sober abd adherent to every aspects of his aftercare treatment plans, he reports he learned throught this treatment the importance of changing attitudes for the utiliation of supports available to prevent relapses and use alternative ways to cope with life stressors. Medication well tolerated, patient reports he has a 30 days supply for Seroquel and he does not need a scripts. Patient is stable for discharge today. Total face to face time:: 35 Mental Status Exam - Mental Status Exam Alert and Oriented to: Time, Place, Person Cognitive Function: Good Patient Appearance: Well Groomed Mood: Hopeful Affect: Appropriate, Mood Congruent Patient Behavior: Appropriate, Cooperative Speech Pattern: Clear, Appropriate Voice Loudness: Normal Thought Process: Intact, Circumstantial Thought Disorder: Not Present Hallucinations: Denies Suicidal Ideation: Denies Homicidal Ideation: Denies Insight/Judgement: Fair Sleep: Fair Appetite: Fair Muscle strength/Tone: Normal Gait/Station: Normal Psychiatric Treatment Plan - Problem List (1) Mood disorder Current Visit: No (2) Alcohol dependence Current Visit: Yes (3) Sedative hypnotic or anxiolytic dependence Current Visit: Yes (4) SOFIA (generalized anxiety disorder) Current Visit: Yes
== END 2017-01-15 10:45 | disposition home or self-care (01) | DRG 772 ==
LOC: YASAS 13:45 → Y5N 13:46
PROVIDERS: ADMIT Psychiatry & Neurology Psychiatry; ATTEND Psychiatry & Neurology Psychiatry
PROC: HZ42ZZZ Group Counseling for Substance Abuse Treatment, Cognitive-Behavioral (ICD-10-PCS; principal; 2016-12-30)
DX: F10.20 Alcohol dependence, uncomplicated (principal); F13.20 Sedative, hypnotic or anxiolytic dependence, uncomplicated; F41.1 Generalized anxiety disorder; F39 Unspecified mood [affective] disorder